=== PATIENT | female | born 1960 | race Caucasian/White ===

== ENCOUNTER 2018-01-02 09:53 | Emergency (ER) | payer BC ==
[2018-01-02] MEDS ORDERED: Sodium Chloride 0.9% 10 ML Syringe FLUSH PRN (10:33)
--- NOTE | 2018-01-02 10:49 | EDM.PDOC ---
<Pilar Leonard - Last Filed: 01/02/18 10:40> ED HPI GENERAL MEDICAL PROBLEM - General Chief Complaint: Chest Pain Stated Complaint: HIGH BLOOD PRESSURE Time Seen by Provider: 01/02/18 10:02 Source of Information: Reports: Patient History Limitations: Reports: No Limitations - History of Present Illness INITIAL COMMENTS - FREE TEXT/NARRATIVE: 57 yo female sent from the walk-in clinic for chest heaviness and lower abdominal and back pain. She believes these symptoms originally began last week while away on a work trip. She had been sitting in the conferences for long periods of time and noticed increased lower extremity swelling. She reports chronic minimal LE edema which she takes 12.5 HCTZ daily for. The swelling last week was the most she has ever experienced and she had associated aches in her legs and arms. She denies shortness of breath, cough, orthopnea but does report a chest heaviness in which she needs to take a deep breath in frequently. She reports overall malaise and feeling as if something is not right over the past week, she has been easily fatigued. Onset: Gradual Duration: Week(s): (1 week ago), Intermittent Location: Reports: Chest, Abdomen (lower), Back, Generalized Severity: Moderate Improves with: Reports: None Worsens with: Reports: Movement Context: Reports: Other (gradual onset while on a business trip a couple hours away) Lower Back Pain Score (Numeric/FACES): 8 - Related Data Allergies Allergy/AdvReac Type Severity Reaction Status Date / Time No Known Allergies Allergy Verified 01/02/18 10:02 Home Meds: Home Meds Cholecalciferol (Vitamin D3) [Vitamin D] 5,000 unit PO DAILY 01/02/18 [History] Estrogens, Conjugated [Premarin] 0.45 mg PO DAILY 01/02/18 [History] Hydrochlorothiazide 12.5 mg PO DAILY 01/02/18 [History] Multivitamin [Multivitamins] 1 each PO DAILY 01/02/18 [History] Past Medical History Cardiovascular History: Reports: Heart Murmur - Past Surgical History Female Surgical History: Reports: Breast Reduction, Hysterectomy Social & Family History - Tobacco Use Smoking Status *Q: Never Smoker - Recreational Drug Use Recreational Drug Use: No ED ROS GENERAL - Review of Systems Review Of Systems: See Below Constitutional: Reports: Malaise, Fatigue, Other (frequent hot flashes). Denies : Fever, Chills HEENT: Reports: No Symptoms Respiratory: Reports: No Symptoms. Denies: Shortness of Breath, Wheezing, Pleuritic Chest Pain, Cough Cardiovascular: Reports: Other (chest heaviness). Denies: Chest Pain, Dyspnea on Exertion, Lightheadedness, Orthopnea Endocrine: Reports: Fatigue GI/Abdominal: Reports: Abdominal Pain (lower L and R quadrants), Other ( heartburn and feeling as if she needs to burp constantly). Denies: Constipation , Diarrhea, Difficulty Swallowing, Nausea, Vomiting : Reports: Frequency, Other (feeling as if incomplete voiding) Musculoskeletal: Reports: Back Pain (Lower right side, non radiating) Skin: Reports: No Symptoms Neurological: Reports: Tingling (L arm). Denies: Dizziness, Headache, Paresthesia, Difficulty Walking, Gait Disturbance Psychiatric: Reports: No Symptoms Hematologic/Lymphatic: Reports: No Symptoms Immunologic: Reports: No Symptoms ED EXAM, GENERAL - Physical Exam Exam: See Below Exam Limited By: No Limitations General Appearance: Alert, WD/WN, No Apparent Distress Ears: Normal External Exam, Hearing Grossly Normal Head: Atraumatic, Normocephalic Neck: Normal Inspection, Full Range of Motion Respiratory/Chest: No Respiratory Distress, Lungs Clear, Normal Breath Sounds, No Accessory Muscle Use Cardiovascular: Normal Peripheral Pulses, Regular Rate, Rhythm, No Edema, No Gallop, No Murmur, No Rub GI/Abdominal: Normal Bowel Sounds, Soft, No Distention, Tender (low L/R quadrant pain with palpation into groin bilaterally) Back Exam: Normal Inspection, Paraspinal Tenderness. No: CVA Tenderness (L), CVA Tenderness (R), Vertebral Tenderness Extremities: Non-Tender, Pedal Edema (minimal non-pitting edema) Neurological: Alert, Oriented, Normal Cognition, No Motor/Sensory Deficits Psychiatric: Normal Affect, Normal Mood Skin Exam: Warm, Dry, Intact, Normal Color Course - Vital Signs Last Recorded V/S: Last Vital Signs Temp 98.7 F 01/02/18 09:58 Pulse 94 01/02/18 09:58 Resp 15 01/02/18 09:58 BP 175/93 H 01/02/18 09:58 Pulse Ox 93 L 01/02/18 09:58 - Orders/Labs/Meds Orders: Active Orders 24 hr Category Date Time Status Cardiac Monitoring [RC] . DIRECTED Care 01/02/18 10:33 Active EKG Documentation Completion [RC] STAT Care 01/02/18 10:33 Active Oxygen Therapy [RC] PRN Care 01/02/18 10:33 Active Peripheral IV Care [RC] . DIRECTED Care 01/02/18 10:34 Active UA W/MICROSCOPIC [URIN] Stat Lab 01/02/18 12:50 Ordered Sodium Chloride 0.9% [Saline Flush] Med 01/02/18 10:33 Active 10 ml FLUSH ASDIRECTED PRN Peripheral IV Insertion Adult [OM.PC] Stat Oth 01/02/18 10:33 Ordered Medication Orders Sodium Chloride (Saline Flush) 10 ml FLUSH ASDIRECTED PRN PRN Reason: Keep Vein Open Last Admin: 01/02/18 10:55 Dose: 10 ml Labs: Laboratory Tests 01/02/18 01/02/18 01/02/18 Range/Units 10:55 10:55 10:55 WBC 5.58 (3.98-10.04) K/mm3 RBC 5.09 (3.98-5.22) M/mm3 Hgb 14.6 (11.2-15.7) gm/L Hct 44.3 (34.1-44.9) % MCV 87.0 (79.4-94.8) fl MCH 28.7 (25.6-32.2) pg MCHC 33.0 (32.2-35.5) g/dl RDW Std Deviation 42.4 (36.4-46.3) fL Plt Count 315 (182-369) K/mm3 MPV 9.9 (9.4-12.3) fl Neut % (Auto) 55.7 (34.0-71.1) % Lymph % (Auto) 33.5 (19.3-51.7) % [place] % (Auto) 8.4 (4.7-12.5) % Eos % (Auto) 1.8 (0.7-5.8) Baso % (Auto) 0.4 (0.1-1.2) % Neut # (Auto) 3.11 (1.56-6.13) K/mm3 Lymph # (Auto) 1.87 (1.18-3.74) K/mm3 [place] # (Auto) 0.47 H (0.24-0.36) K/mm3 Eos # (Auto) 0.10 (0.04-0.36) K/mm3 Baso # (Auto) 0.02 (0.01-0.08) K/mm3 D-Dimer, Quantitative < 0.19 L (0.19-0.50) mg/L Sodium 138 (136-145) mEq/L Potassium 3.9 (3.5-5.1) mEq/L Chloride 102 (98-107) mEq/L Carbon Dioxide 26 (21-32) mEq/L Anion Gap 13.9 (5-15) BUN 16 (7-18) mg/dL Creatinine 0.8 (0.55-1.02) mg/dL Est Cr Clr Drug Dosing 74.38 mL/min Estimated GFR (MDRD) > 60 (>60) mL/min BUN/Creatinine Ratio 20.0 H (14-18) Glucose 91 (74-106) mg/dL Calcium 9.5 (8.5-10.1) mg/dL Total Bilirubin 0.5 (0.2-1.0) mg/dL AST 26 (15-37) U/L ALT 35 (14-59) U/L Alkaline Phosphatase 75 (46-116) U/L Troponin I < 0.017 (0.00-0.056) ng/mL NT-Pro-B Natriuret Pep (0-125) pg/mL Total Protein 8.1 (6.4-8.2) g/dl Albumin 3.8 (3.4-5.0) g/dl Globulin 4.3 gm/dL Albumin/Globulin Ratio 0.9 L (1-2) TSH 3rd Generation 3.820 H (0.358-3.74) uIU/mL Urine Color (Yellow) Urine Appearance (Clear) Urine pH (5.0-8.0) Ur Specific [place] (1.005-1.030) Urine Protein (Negative) Urine Glucose (UA) (Negative) Urine Ketones (Negative) Urine Occult Blood (Negative) Urine Nitrite (Negative) Urine Bilirubin (Negative) Urine Urobilinogen (0.2-1.0) Ur Leukocyte Esterase (Negative) Urine RBC (0-5) /hpf Urine WBC (0-5) /hpf Ur Epithelial Cells (0-5) /hpf Urine Bacteria (FEW) /hpf Urine Mucus (FEW) /hpf 01/02/18 01/02/18 Range/Units 10:55 12:50 WBC (3.98-10.04) K/mm3 RBC (3.98-5.22) M/mm3 Hgb (11.2-15.7) gm/L Hct (34.1-44.9) % MCV (79.4-94.8) fl MCH (25.6-32.2) pg MCHC (32.2-35.5) g/dl RDW Std Deviation (36.4-46.3) fL Plt Count (182-369) K/mm3 MPV (9.4-12.3) fl Neut % (Auto) (34.0-71.1) % Lymph % (Auto) (19.3-51.7) % [place] % (Auto) (4.7-12.5) % Eos % (Auto) (0.7-5.8) Baso % (Auto) (0.1-1.2) % Neut # (Auto) (1.56-6.13) K/mm3 Lymph # (Auto) (1.18-3.74) K/mm3 [place] # (Auto) (0.24-0.36) K/mm3 Eos # (Auto) (0.04-0.36) K/mm3 Baso # (Auto) (0.01-0.08) K/mm3 D-Dimer, Quantitative (0.19-0.50) mg/L Sodium (136-145) mEq/L Potassium (3.5-5.1) mEq/L Chloride (98-107) mEq/L Carbon Dioxide (21-32) mEq/L Anion Gap (5-15) BUN (7-18) mg/dL Creatinine (0.55-1.02) mg/dL Est Cr Clr Drug Dosing mL/min Estimated GFR (MDRD) (>60) mL/min BUN/Creatinine Ratio (14-18) Glucose (74-106) mg/dL Calcium (8.5-10.1) mg/dL Total Bilirubin (0.2-1.0) mg/dL AST (15-37) U/L ALT (14-59) U/L Alkaline Phosphatase (46-116) U/L Troponin I (0.00-0.056) ng/mL NT-Pro-B Natriuret Pep 17 (0-125) pg/mL Total Protein (6.4-8.2) g/dl Albumin (3.4-5.0) g/dl Globulin gm/dL Albumin/Globulin Ratio (1-2) TSH 3rd Generation (0.358-3.74) uIU/mL Urine Color Yellow (Yellow) Urine Appearance Slt cloudy H (Clear) Urine pH 6.0 (5.0-8.0) Ur Specific [place] 1.025 (1.005-1.030) Urine Protein Negative (Negative) Urine Glucose (UA) Negative (Negative) Urine Ketones Negative (Negative) Urine Occult Blood Negative (Negative) Urine Nitrite Negative (Negative) Urine Bilirubin Negative (Negative) Urine Urobilinogen 0.2 (0.2-1.0) Ur Leukocyte Esterase Negative (Negative) Urine RBC Not seen (0-5) /hpf Urine WBC 0-5 (0-5) /hpf Ur Epithelial Cells 0-5 (0-5) /hpf Urine Bacteria Not seen (FEW) /hpf Urine Mucus Not seen (FEW) /hpf Meds: Medications Generic Name Dose Route Start Last Admin Trade Name Freq PRN Reason Stop Dose Admin Sodium Chloride 10 ml 01/02/18 10:33 01/02/18 10:55 Saline Flush FLUSH 10 ml ASDIRECTED PRN Administration Keep Vein Open Departure - Departure Disposition: Home, Self-Care 01 Clinical Impression: Bilateral leg edema, Atypical chest pain Referrals: Lizzy Garrett MD [Primary Care Provider] - Rhett Mccormack MD [Family Provider] - ( at 3:30pm) Forms: ED Department Discharge Additional Instructions: Take your medication as prescribed. Follow up with Dr Moya on the at 3:30pm. Please return if you are worse. - My Orders Last 24 Hours: My Active Orders 01/02/18 10:33 Cardiac Monitoring [RC] . DIRECTED EKG Documentation Completion [RC] STAT Oxygen Therapy [RC] PRN Sodium Chloride 0.9% [Saline Flush] 10 ml FLUSH ASDIRECTED PRN Peripheral IV Insertion Adult [OM.PC] Stat 01/02/18 10:34 Peripheral IV Care [RC] . DIRECTED 01/02/18 12:50 UA W/MICROSCOPIC [URIN] Stat - Assessment/Plan Last 24 Hours: My Active Orders 01/02/18 10:33 Cardiac Monitoring [RC] . DIRECTED EKG Documentation Completion [RC] STAT Oxygen Therapy [RC] PRN Sodium Chloride 0.9% [Saline Flush] 10 ml FLUSH ASDIRECTED PRN Peripheral IV Insertion Adult [OM.PC] Stat 01/02/18 10:34 Peripheral IV Care [RC] . DIRECTED 01/02/18 12:50 UA W/MICROSCOPIC [URIN] Stat <TimHossein myers - Last Filed: 01/02/18 13:54> EKG INTERPRETATION EKG Date: 01/02/18 Time: 10:47 Rhythm: NSR Rate (Beats/Min): 75 [place]: Normal P-Wave: Present QRS: Normal ST-T: Normal QT: Normal Course - Re-Assessments/Exams Free Text/Narrative Re-Assessment/Exam: 01/02/18 13:44 I examined the patient and I agree with Calli's assessment and plan. Her EKG shows a NSR with no acute changes. Her CXR looks good. Her CBC looks good. Her D-dimer was negative. Her CMP looks good. Her troponin was normal. Her TSH was slightly elevated at 3.820. I will have her have that rechecked. She has a history of a heart murmur as a child. That has not been checked in a few years. I did not hear a murmur. I will have her follow up with Dr Moya and I think she needs another echo. I am waiting on her UA now. 01/02/18 13:[address] good[address] Dr Moya can get her in on the . They wanted me to wait on ordering the echo. Departure - Departure Time of Disposition: 13:55 Condition: Good
--- NOTE | 2018-01-02 13:33 | CR ---
Chest: Two views of the chest were obtained. Comparison: No prior chest x-ray. Heart size and mediastinum are normal. Lungs are clear. Mild degenerative change is seen within the spine with disc space narrowing and endplate spurring within the mid thoracic spine. Impression: 1. Incidental findings. Nothing acute is seen. Diagnostic code #2
== END 2018-01-02 14:11 | disposition home or self-care (01) ==
LOC: JD.ED 09:53
DX: R07.89 Other chest pain (principal); R60.0 Localized edema; Z79.899 Other long term (current) drug therapy
CPT/HCPCS: 36415; 71046; 80053; 81001; 83880; 84443; 84484; 85025; 85379; 86788; 93005; 99284; J7050; 86789; 93010